=== PATIENT | male | born 1970 | race African-American/Black ===

== ENCOUNTER 2018-06-13 13:37 | Inpatient (IN) | payer MEDICARE, OTHER ==
[~2018-06-13] VITALS: Ht 188 cm; Wt 112.0 kg
[2018-06-13] MEDS ORDERED: HYDROCODONE/ACETAMINOPHEN 10/325MG TABLET PO ONE (17:15)
[2018-06-13] MEDS ORDERED: CYCLOBENZAPRINE 10MG TABLET PO ONE ×2 (18:15→21:15)
[2018-06-13] MEDS ORDERED: LORAZEPAM 1MG TABLET PO ONE (20:30)
[2018-06-13] MEDS ORDERED: MORPHINE SULFATE 10 MG/ML CPJ IM ONE (22:45)
[2018-06-14 01:35] LABS: EOSINOPHILS % 11.1 % (0.0-5.0); HEMATOCRIT. 42.7 % (42.0-52.0); HEMOGLOBIN. 14.1 g/dL (14.0-18.0); LYMPHOCYTES % 27.6 % (20.0-50.0); MEAN CORPUSCULAR HEMOGLOBIN 29.4 pg (28.0-32.0); MEAN CORPUSCULAR VOLUME 89.3 fL (80.0-94.0); MEAN PLATELET VOLUME 7.7 fl (7.4-10.4); MONOCYTES % 11.4 % (2.0-8.0); NEUTROPHILS % 48.9 % (40.0-76.0); PLATELET 235 x1000/uL (130-400); RED BLOOD CELL COUNT 4.78 mill/uL (4.7-6.1); RED CELL DISTRIBUTION WIDTH 15.8 % (11.6-14.6)
[2018-06-14 01:41] LABS: CHLORIDE 105 mEq/L (98-107)
[2018-06-14 01:44] LABS: PROTHROMBIN TIME 10.1 sec (9.1-11.1)
[2018-06-14] MEDS ORDERED: MORPHINE SULFATE 2 MG/ML CPJ (NOT FOR IM USE) IV ONE (02:30)
[2018-06-14 04:00] VITALS: BP 135/81
[2018-06-14 04:37] VITALS: BP 135/81
[2018-06-14] MEDS ORDERED: OXYC-662 GT (05:07)
[2018-06-14] MEDS ORDERED: NORV1 MT (05:10)
[2018-06-14] MEDS ORDERED: METF-816 MT (05:10)
[2018-06-14] MEDS ORDERED: ALBU4TAB6 MT (05:10)
[2018-06-14] MEDS ORDERED: BRIV50TA MT (06:18)
[2018-06-14] MEDS ORDERED: CLON0.122 PO (06:18)
[2018-06-14] MEDS ORDERED: TIZA2CAP7 PO (06:21)
[2018-06-14] MEDS ORDERED: AMLO-337 PO (06:21)
[2018-06-14] MEDS ORDERED: [UNRECOGNIZED DRUG - CODE] PO (06:21)
[2018-06-14] MEDS ORDERED: CLONIDINE 0.1MG TABLET PO PRN (11:00)
[2018-06-14] MEDS ORDERED: ONDANSETRON HCL 4MG/2ML INJ IV PRN (11:00)
[2018-06-14] MEDS ORDERED: ACETAMINOPHEN 650MG/20.3ML UDC GT PRN (11:00)
[2018-06-14] MEDS ORDERED: SODIUM CHLORIDE 0.9% 1,000 ML IV SCH (12:14)
[2018-06-14] MEDS: HYDROMORPHONE HCL/PF 2MG/ML CPJ IV PRN ×2 (13:36→20:52)
[2018-06-14] MEDS: ENOXAPARIN 30MG/0.3ML SYR SUBCUT SCH ×2 (13:36→20:51)
[2018-06-14 15:47] LABS: CREATINE KINASE 436 IU/L (39-308)
[2018-06-14 15:48] LABS: CREATINE KINASE MB FRACTION 1.5 ng/mL (0.5-3.6)
[2018-06-14] MEDS ORDERED: OXYCODONE HCL/ACETAMINOPHEN 5/325MG TABLET PO PRN (17:00)
[2018-06-14] MEDS: BACLOFEN 10MG TABLET PO SCH ×2 (17:06→18:34)
[2018-06-14] MEDS ORDERED: DEXTROSE 50% WATER 50ML SYRINGE IV PRN ×2 (17:15)
[2018-06-14] MEDS ORDERED: BLOOD SUGAR DIAGNOSTIC STRIP TEST SCH (17:20)
[2018-06-14] MEDS: BLOOD SUGAR DIAGNOSTIC STRIP TEST SCH ×2 (17:20→21:00)
[2018-06-14] MEDS: INSULIN LISPRO 100 UNITS/ML SUBCUT SCH ×2 (17:50→21:00)
[2018-06-14] MEDS: METFORMIN HCL 500MG TABLET PO SCH (17:50)
[2018-06-14 20:00] VITALS: BP 130/75
[2018-06-14] MEDS: ATORVASTATIN CALCIUM 10MG TABLET PO SCH (20:53)
[2018-06-14] MEDS: CLONAZEPAM 1MG TABLET PO SCH (20:53)
[2018-06-14] MEDS: BRIVIACT 100 MG PO SCH (21:11)
[2018-06-14] MEDS: FYCOMPA PO SCH (21:12)
[2018-06-14 23:51] LABS: CREATINE KINASE 388 IU/L (39-308)
[2018-06-14 23:52] LABS: CREATINE KINASE MB FRACTION 1.5 ng/mL (0.5-3.6)
[2018-06-15] VITALS: BP 142/76
[2018-06-15] MEDS: HYDROMORPHONE HCL/PF 2MG/ML CPJ IV PRN ×7 (00:56→23:13)
[2018-06-15 04:00] VITALS: BP 131/86
[2018-06-15 07:07] LABS: HEMATOCRIT. 39.9 % (42.0-52.0); HEMOGLOBIN. 13.4 g/dL (14.0-18.0); LYMPHOCYTES % 23.3 % (20.0-50.0); MEAN CORPUSCULAR HEMOGLOBIN 29.6 pg (28.0-32.0); MEAN CORPUSCULAR VOLUME 88.4 fL (80.0-94.0); MONOCYTES % 12.3 % (2.0-8.0); NEUTROPHILS % 53.4 % (40.0-76.0); PLATELET 216 x1000/uL (130-400); RED BLOOD CELL COUNT 4.52 mill/uL (4.7-6.1); RED CELL DISTRIBUTION WIDTH 15.4 % (11.6-14.6)
[2018-06-15 07:12] LABS: CHLORIDE 107 mEq/L (98-107)
[2018-06-15 07:24] LABS: PHOSPHORUS 3.1 mg/dL (2.5-4.9)
[2018-06-15] MEDS: INSULIN LISPRO 100 UNITS/ML SUBCUT SCH ×4 (07:50→21:00)
[2018-06-15] MEDS: METFORMIN HCL 500MG TABLET PO SCH ×2 (07:50→17:50)
[2018-06-15] MEDS: BLOOD SUGAR DIAGNOSTIC STRIP TEST SCH ×4 (07:54→21:00)
[2018-06-15 08:00] VITALS: BP 120/53
[2018-06-15] MEDS: RITONAVIR 100 MG TABLET PO SCH (08:14)
[2018-06-15] MEDS: ENOXAPARIN 30MG/0.3ML SYR SUBCUT SCH ×2 (08:14→20:53)
[2018-06-15] MEDS: BRIVIACT 100 MG PO SCH ×2 (08:14→20:55)
[2018-06-15] MEDS: BACLOFEN 10MG TABLET PO SCH ×2 (08:14→16:45)
[2018-06-15] MEDS: FYCOMPA PO SCH ×2 (08:15→20:54)
[2018-06-15] MEDS: ALBUTEROL 2MG TABLET PO SCH (08:23)
[2018-06-15 12:00] VITALS: BP 124/63
[2018-06-15 16:00] VITALS: BP 124/63
[2018-06-15] MEDS: LORAZEPAM 2MG/ML CPJ IV PRN (16:45)
[2018-06-15 20:00] VITALS: BP 135/85
[2018-06-15] MEDS: ATORVASTATIN CALCIUM 10MG TABLET PO SCH (20:53)
[2018-06-15] MEDS: CLONAZEPAM 1MG TABLET PO SCH (20:53)
[2018-06-16] VITALS: BP 127/84
[2018-06-16 04:00] VITALS: BP 137/84
[2018-06-16] MEDS: BLOOD SUGAR DIAGNOSTIC STRIP TEST SCH ×4 (06:54→20:36)
[2018-06-16 06:56] LABS: BASOPHILS % 0.9 % (0.0-2.0); EOSINOPHILS % 8.1 % (0.0-5.0); HEMATOCRIT. 39.8 % (42.0-52.0); HEMOGLOBIN. 13.5 g/dL (14.0-18.0); LYMPHOCYTES % 18.2 % (20.0-50.0); MEAN CORPUSCULAR HEMOGLOBIN 29.7 pg (28.0-32.0); MEAN CORPUSCULAR VOLUME 87.8 fL (80.0-94.0); MEAN PLATELET VOLUME 8.1 fl (7.4-10.4); MONOCYTES % 13.2 % (2.0-8.0); NEUTROPHILS % 59.6 % (40.0-76.0); PLATELET 221 x1000/uL (130-400); RED BLOOD CELL COUNT 4.53 mill/uL (4.7-6.1); RED CELL DISTRIBUTION WIDTH 15.4 % (11.6-14.6)
[2018-06-16 07:42] LABS: CHLORIDE 107 mEq/L (98-107)
[2018-06-16] MEDS: METFORMIN HCL 500MG TABLET PO SCH ×2 (07:50→17:30)
[2018-06-16] MEDS: INSULIN LISPRO 100 UNITS/ML SUBCUT SCH ×4 (07:50→21:00)
[2018-06-16 07:51] LABS: PHOSPHORUS 3.1 mg/dL (2.5-4.9)
[2018-06-16] MEDS: BACLOFEN 10MG TABLET PO SCH ×2 (08:16→17:19)
[2018-06-16] MEDS: BRIVIACT 100 MG PO SCH ×2 (08:17→20:35)
[2018-06-16] MEDS: FYCOMPA PO SCH ×2 (08:18→20:34)
[2018-06-16] MEDS: RITONAVIR 100 MG TABLET PO SCH (08:18)
[2018-06-16] MEDS: ENOXAPARIN 30MG/0.3ML SYR SUBCUT SCH ×2 (08:21→20:36)
[2018-06-16] MEDS: ALBUTEROL 2MG TABLET PO SCH (08:30)
[2018-06-16 08:32] VITALS: BP 103/54
[2018-06-16] MEDS: HYDROMORPHONE HCL/PF 2MG/ML CPJ IV PRN ×5 (09:20→23:06)
[2018-06-16 11:41] VITALS: BP 117/63
[2018-06-16 16:03] VITALS: BP 112/48
[2018-06-16 20:00] VITALS: BP 123/69
[2018-06-16] MEDS: CLONAZEPAM 1MG TABLET PO SCH (20:34)
[2018-06-16] MEDS: ATORVASTATIN CALCIUM 10MG TABLET PO SCH (20:34)
[2018-06-17] VITALS: BP 120/52
[2018-06-17] MEDS: HYDROMORPHONE HCL/PF 2MG/ML CPJ IV PRN ×4 (01:39→20:38)
[2018-06-17 04:00] VITALS: BP 117/60
[2018-06-17] MEDS: METFORMIN HCL 500MG TABLET PO SCH ×2 (06:49→17:24)
[2018-06-17] MEDS: BLOOD SUGAR DIAGNOSTIC STRIP TEST SCH ×4 (07:20→20:58)
[2018-06-17] MEDS: INSULIN LISPRO 100 UNITS/ML SUBCUT SCH ×4 (07:50→21:00)
[2018-06-17 08:00] VITALS: BP 127/69
[2018-06-17] MEDS: ALBUTEROL 2MG TABLET PO SCH (08:34)
[2018-06-17] MEDS: ENOXAPARIN 30MG/0.3ML SYR SUBCUT SCH ×2 (08:34→20:38)
[2018-06-17] MEDS: BRIVIACT 100 MG PO SCH ×2 (08:36→20:47)
[2018-06-17] MEDS: FYCOMPA PO SCH ×2 (08:36→20:48)
[2018-06-17] MEDS: BACLOFEN 10MG TABLET PO SCH ×2 (08:36→17:19)
[2018-06-17] MEDS: LORAZEPAM 2MG/ML CPJ IV PRN (12:49)
[2018-06-17] MEDS: RITONAVIR 100 MG TABLET PO SCH (12:50)
[2018-06-17 16:00] VITALS: BP 122/73
[2018-06-17 18:57] LABS: ETHANOL BLOOD < 10 mg/dL
[2018-06-17 19:03] LABS: T4 FREE 1.03 ng/dL (0.76-1.46)
[2018-06-17 19:13] LABS: FOLIC ACID (FOLATE) SERUM 6.6 ng/mL (>5.38)
[2018-06-17 20:00] VITALS: BP 120/73
[2018-06-17] MEDS: CLONAZEPAM 1MG TABLET PO SCH (20:38)
[2018-06-17] MEDS: ATORVASTATIN CALCIUM 10MG TABLET PO SCH (20:38)
[2018-06-18] VITALS: BP 118/80
[2018-06-18] MEDS: HYDROMORPHONE HCL/PF 2MG/ML CPJ IV PRN ×5 (00:29→12:53)
[2018-06-18 04:00] VITALS: BP 118/71
[2018-06-18] MEDS: BLOOD SUGAR DIAGNOSTIC STRIP TEST SCH ×2 (07:29→12:52)
[2018-06-18 07:40] LABS: HEMATOCRIT. 41.4 % (42.0-52.0); HEMOGLOBIN. 13.9 g/dL (14.0-18.0); MEAN CORPUSCULAR HEMOGLOBIN 29.8 pg (28.0-32.0); MEAN CORPUSCULAR VOLUME 88.4 fL (80.0-94.0); MEAN PLATELET VOLUME 7.8 fl (7.4-10.4); PLATELET 211 x1000/uL (130-400); RED BLOOD CELL COUNT 4.69 mill/uL (4.7-6.1); RED CELL DISTRIBUTION WIDTH 15.3 % (11.6-14.6)
[2018-06-18] MEDS: METFORMIN HCL 500MG TABLET PO SCH (07:50)
[2018-06-18] MEDS: INSULIN LISPRO 100 UNITS/ML SUBCUT SCH ×2 (07:50→12:50)
[2018-06-18 07:56] LABS: CHLORIDE 105 mEq/L (98-107)
[2018-06-18 08:00] VITALS: BP 128/72
[2018-06-18] MEDS: RITONAVIR 100 MG TABLET PO SCH (09:00)
[2018-06-18] MEDS: ALBUTEROL 2MG TABLET PO SCH (09:00)
[2018-06-18] MEDS: ENOXAPARIN 30MG/0.3ML SYR SUBCUT SCH (09:00)
[2018-06-18] MEDS: BRIVIACT 100 MG PO SCH (09:02)
[2018-06-18] MEDS: FYCOMPA PO SCH (09:02)
[2018-06-18] MEDS: BACLOFEN 10MG TABLET PO SCH (09:02)
[2018-06-18 10:12] LABS: PLATELET ESTIMATE NORMAL
[2018-06-18 12:00] VITALS: BP 134/50
[2018-06-18] MEDS: LORAZEPAM 2MG/ML CPJ IV PRN (14:48)
[2018-06-18] MEDS ORDERED: PREDNISONE 20MG TABLET PO NR (15:30)
[2018-06-18 15:47] VITALS: BP 122/70
[2018-06-18] MEDS ORDERED: CYCLOBENZAPRINE 10MG TABLET PO SCH (22:00)
== END 2018-06-18 16:10 | disposition home or self-care (01) | DRG 552 ==
LOC: ER 13:37 → 6EST 19:57 → ENRESERV 06-14 02:59 → ER 06-14 04:00 → 6EST 06-14 05:13
PROVIDERS: ADMIT Internal Medicine Nephrology; ATTEND Internal Medicine Nephrology
DX: M47.897 Other spondylosis, lumbosacral region (principal); M62.82 Rhabdomyolysis; E46 Unspecified protein-calorie malnutrition; G57.92 Unspecified mononeuropathy of left lower limb; R26.2 Difficulty in walking, not elsewhere classified; M48.07 Spinal stenosis, lumbosacral region; M19.90 Unspecified osteoarthritis, unspecified site; M51.17 Intervertebral disc disorders with radiculopathy, lumbosacral region; L40.9 Psoriasis, unspecified; E11.41 Type 2 diabetes mellitus with diabetic mononeuropathy; I10 Essential (primary) hypertension; R56.9 Unspecified convulsions; V89.2XXA Person injured in unspecified motor-vehicle accident, traffic, initial encounter; Y93.89 Activity, other specified; Y99.8 Other external cause status; Z68.31 Body mass index [BMI] 31.0-31.9, adult; V49.9XXA Car occupant (driver) (passenger) injured in unspecified traffic accident, initial encounter; Y92.410 Unspecified street and highway as the place of occurrence of the external cause; Z88.8 Allergy status to other drugs, medicaments and biological substances; Z86.73 Personal history of transient ischemic attack (TIA), and cerebral infarction without residual deficits
CPT/HCPCS: 36415; 71045; 72131; 72148; 72192; 73502; 73562; 73630; 73721; 80048; 82550; 82553; 82607; 82746; 82962; 83036; 83735; 84100; 84439; 84443; 84481; 84484; 93005; 96372; 96374; 97162; 97166; 99285; C1893; G0482; J1170; J1650; J2060; J2270; J7030

== ENCOUNTER 2023-06-16 18:20 | Emergency (ER) | payer MEDICARE, MEDICAID ==
[~2023-06-16] VITALS: Ht 177.8 cm; Wt 110.0 kg
[~2023-06-16 18:20] MED LIST: ALBU4TAB6 MT; AMLO-337 PO; BRIV50TA MT; CLON0.122 PO; METF-874 MT; NORV1 MT; OXYC-662 GT; TIZA2CAP7 PO; [UNRECOGNIZED DRUG - CODE] PO
[2023-06-16 18:37] VITALS: BP 131/96; PULSE 129; RESP 18; TEMP 98.4; O2SAT 100
[2023-06-16 20:37] LABS: EOSINOPHILS % 2.3 % (0.0-5.0); HEMATOCRIT. 43.6 % (42.0-52.0); HEMOGLOBIN. 14.9 g/dL (14.0-18.0); LYMPHOCYTES % 26.2 % (20.0-50.0); MEAN CORPUSCULAR HGB CONC 34.1 g/dL (31.0-37.0); MEAN CORPUSCULAR VOLUME 90.9 fL (80.0-94.0); MEAN PLATELET VOLUME 8.4 fl (7.4-10.4); MONOCYTES % 9.4 % (2.0-8.0); NEUTROPHILS % 61.1 % (40.0-76.0); PLATELET 242 x1000/uL (130-400); RED CELL DISTRIBUTION WIDTH 15.4 % (11.6-14.6); WHITE BLOOD COUNT 5.9 x1000/uL (4.5-11.0)
[2023-06-16 20:53] LABS: ALANINE AMINOTRANSFERASE 16 IU/L (10-49); ALBUMIN 4.1 g/dL (3.2-4.8); ASPARTATE AMINOTRANSFERASE 17 IU/L (<34); BILIRUBIN TOTAL 0.3 mg/dL (0.1-1.0); CALCIUM 9.2 mg/dL (8.7-10.4); CARBON DIOXIDE 28 mEq/L (21-32); CHLORIDE 109 mEq/L (98-107); CREATININE 0.9 mg/dL (0.6-1.3); GLUCOSE 105 mg/dL (70-105); POTASSIUM 3.7 mEq/L (3.5-5.1); PROTEIN TOTAL 6.8 g/dL (6.0-8.3); SODIUM 143 mEq/L (136-145); UREA NITROGEN BLOOD 12 mg/dL (9-23)
[2023-06-16 21:06] LABS: TROPONIN I HIGH SENSITIVITY < 4 ng/L (3.0-53)
== END 2023-06-17 01:10 | disposition home or self-care (01) ==
LOC: ER 18:20
DX: R56.9 Unspecified convulsions (principal); I10 Essential (primary) hypertension; E11.9 Type 2 diabetes mellitus without complications; Z88.8 Allergy status to other drugs, medicaments and biological substances; Z86.73 Personal history of transient ischemic attack (TIA), and cerebral infarction without residual deficits
CPT/HCPCS: 36415; 71045; 80053; 84484; 85025; 93005; 99285